=== PATIENT | male | born 1980 | race African-American/Black ===

== ENCOUNTER 2019-09-16 20:12 | Emergency (ER) | payer SELFPAY ==
--- NOTE | 2019-09-16 20:22 | EDM.PDOC ---
ED HPI GENERAL MEDICAL PROBLEM - General Chief Complaint: Skin Complaint Stated Complaint: SWELLING UNDER EYE Time Seen by Provider: 09/16/19 20:13 Source of Information: Reports: Patient History Limitations: Reports: No Limitations - History of Present Illness INITIAL COMMENTS - FREE TEXT/NARRATIVE: HISTORY AND PHYSICAL: History of present illness: Patient is a 39-year-old male who presents to the emergency room with complaints of a "spider bite" possibly to his lower eyelid. He noticed some eyelid irritation/drainage and swelling to his lower eyelid. He denies any injury, trauma or visual changes. Patient denies any fever, chills, headache, change in vision, syncope or near syncope. Denies any chest pain, back pain, shortness of breath or cough. Denies any GI or symptoms. Does not wear contact lenses or glasses. Review of systems: As per history of present illness and below otherwise all systems reviewed and negative. Past medical history: As per history of present illness and as reviewed below otherwise noncontributory. Surgical history: As per history of present illness and as reviewed below otherwise noncontributory. Social history: See social history for further information Family history: As per history of present illness and as reviewed below otherwise noncontributory. Physical exam: General: Well-developed and well-nourished 39-year-old -[place] male. Alert and oriented. Nontoxic-appearing and in no acute distress. HEENT: Atraumatic, normocephalic, pupils equal and reactive bilaterally, negative for conjunctival pallor or scleral icterus, green drainage noted to the medial corner of the left eye, stye noted along mid lower lash line, no pain with ocular movement, no scleral injection. Mucous membranes moist, TMs normal bilaterally, throat clear, neck supple, nontender, trachea midline. No drooling or trismus noted. No meningeal signs. No hot potato voice noted. Lungs: Clear to auscultation, breath sounds equal bilaterally. Heart: S1S2, regular rate and rhythm without overt murmur Abdomen: Soft, nondistended, nontender. Skin: Intact, warm, dry. No lesions or rashes noted. Extremities: Atraumatic, moves all extremities per self without difficulty or deficits, negative for cords or calf pain. Neurovascular unremarkable. Neuro: Awake, alert, oriented. Cranial nerves II through XII unremarkable. Cerebellum unremarkable. Motor and sensory unremarkable throughout. Exam nonfocal. Notes: We discussed signs and symptoms that would prompt him to return to the emergency room. Erythromycin ointment was given while here. Discussed follow-up with ophthalmology. Medication and supportive care measures were reviewed and discussed. Voices understanding and is agreeable to plan of care. Denies any further questions or concerns at this time. Diagnostics: None Therapeutics: Erythromycin ointment Prescription: Erythromycin ointment Impression: Stye, left lower lid Plan: 1. Use the erythromycin ointment, 1 cm ribbon in left eye 4 times daily over the next 5 to 7 days. 2. Please make sure you are applying warm compresses to the eye with gentle massage. 3. Follow-up with ophthalmology as needed. Return to the emergency room as needed and as discussed. Definitive disposition and diagnosis as appropriate pending reevaluation and review of above. - Related Data Allergies Allergy/AdvReac Type Severity Reaction Status Date / Time No Known Allergies Allergy Verified 09/16/19 20:17 Home Meds: Home Meds . [No Known Home Meds] 09/07/13 [History] ED ROS GENERAL - Review of Systems Review Of Systems: Comprehensive ROS is negative, except as noted in HPI. ED EXAM, SKIN/RASH Exam: See Below (See dictation) Course - Vital Signs Last Recorded V/S: Last Vital Signs Temp 97.2 F 09/16/19 20:19 Pulse 105 H 09/16/19 20:24 Resp 18 09/16/19 20:24 BP 149/83 H 09/16/19 20:24 Pulse Ox 98 09/16/19 20:24 - Orders/Labs/Meds Meds: Medications Discontinued Medications Generic Name Dose Route Start Last Admin Trade Name Constance PRN Reason Stop Dose Admin Erythromycin 1 gm 09/16/19 20:24 Erythromycin 0.5% Ophth Oint EYELF 09/16/19 20:25 ONETIME ONE Departure - Departure Time of Disposition: 20:31 Disposition: Home, Self-Care 01 Clinical Impression: Stye Qualifiers: Laterality: left Eyelid: lower Qualified Code(s): H00.015 - Hordeolum externum left lower eyelid - Discharge Information Referrals: PCP,None [Primary Care Provider] - Forms: ED Department Discharge Additional Instructions: The following information is given to patients seen in the emergency department who are being discharged to home. This information is to outline your options for follow-up care. We provide all patients seen in our emergency department with a follow-up referral. The need for follow-up, as well as the timing and circumstances, are variable depending upon the specifics of your emergency department visit. If you don't have a primary care physician on staff, we will provide you with a referral. We always advise you to contact your personal physician following an emergency department visit to inform them of the circumstance of the visit and for follow-up with them and/or the need for any referrals to a consulting specialist. The emergency department will also refer you to a specialist when appropriate. This referral assures that you have the opportunity for follow-up care with a specialist. All of these measure are taken in an effort to provide you with optimal care, which includes your follow-up. Under all circumstances we always encourage you to contact your private physician who remains a resource for coordinating your care. When calling for follow-up care, please make the office aware that this follow-up is from your recent emergency room visit. If for any reason you are refused follow-up, please contact the [facility] Emergency Department at and asked to speak to the emergency department charge nurse. [facility] [address] [place] [id number] [id number] Thank you for choosing the [facility] emergency department in [place] for your medical needs today. It was a pleasure caring for you. You were seen in the emergency department for stye of the left lower lid. 1. Use the erythromycin ointment, 1 cm ribbon in left eye 4 times daily over the next 5 to 7 days. 2. Please make sure you are applying warm compresses to the eye with gentle massage. 3. Follow-up with ophthalmology as needed. Return to the emergency room as needed and as discussed. Sepsis Event Note (ED) - Focused Exam Vital Signs: Vital Signs Temp Pulse Resp BP Pulse Ox 09/16/19 20:24 105 H 18 149/83 H 98 09/16/19 20:19 97.2 F
[2019-09-16] MEDS: Erythromycin Base 0.5% Ophth Oint 1 GM Tube EYELF ONE ×2 (20:31→20:40)
[2019-09-16] MEDS ORDERED: Polymyxin B/Trimethoprim 10 ML Bottle EYELF ONE (20:34)
== END 2019-09-16 21:03 | disposition home or self-care (01) ==
LOC: MW.ED 20:12
DX: H00.015 Hordeolum externum left lower eyelid (principal)
CPT/HCPCS: 99282; A9270